=== PATIENT | male | born 1950 | race Caucasian/White ===

== ENCOUNTER 2018-09-24 11:45 | Inpatient (IN) | payer OTHER ==
[~2018-09-24] VITALS: Ht 180.3 cm; Wt 68.9 kg
[~2018-09-24 11:45] MED LIST: CIPRO750 MG PO; CLONAZEPAM1 MG PO; DOCUSATE SODIU100 MG PO; METHYLPRED4 MG/DOSE- PO; NEURONTIN PO; PERCOCET 5/3251 TAB PO
[2018-09-26] MEDS ORDERED: GABAPENTIN800 MG PO (08:02)
[2018-09-26] MEDS ORDERED: DOCUSATE SODIU100 MG PO (08:02)
[2018-09-26] MEDS ORDERED: AMOX-CLAV 875-1 EACH PO (08:03)
[2018-09-26] MEDS ORDERED: PERCOCET 5-3251 EACH PO (08:04)
[2018-09-26] MEDS ORDERED: CLONAZEPAM0.5 MG PO (08:04)
== END 2018-09-26 17:30 | disposition home or self-care (01) | DRG 460 ==
LOC: ADM 11:45 → SURH 09-25 06:28 → O/R 09-25 06:28 → EDSTATUS 09-25 11:45 → SURH 09-25 11:45 → ADM 09-25 11:45 → SURH 09-25 19:33
PROVIDERS: ADMIT Orthopaedic Surgery Orthopaedic Surgery of the Spine
PROC: 00NY0ZZ Release Lumbar Spinal Cord, Open Approach (ICD-10-PCS; 2018-09-25)
PROC: 0ST40ZZ Resection of Lumbosacral Disc, Open Approach (ICD-10-PCS; 2018-09-25)
PROC: 0SP30AZ Removal of Interbody Fusion Device from Lumbosacral Joint, Open Approach (ICD-10-PCS; 2018-09-25)
PROC: 07DS3ZZ Extraction of Vertebral Bone Marrow, Percutaneous Approach (ICD-10-PCS; 2018-09-25)
PROC: 0SG30AJ Fusion of Lumbosacral Joint with Interbody Fusion Device, Posterior Approach, Anterior Column, Open Approach (ICD-10-PCS; principal; 2018-09-25 16:45)
DX: M43.17 Spondylolisthesis, lumbosacral region (principal); M47.897 Other spondylosis, lumbosacral region